=== PATIENT | male | born 1965 | race Caucasian/White ===

== ENCOUNTER 2024-07-18 08:38 | Outpatient (CLI) | payer OTHER | END 2024-07-18 08:39 | disposition home or self-care (01) | LOC: CSHULT 08:38 | PROVIDERS: ATTEND Family Medicine | DX: R74.8 Abnormal levels of other serum enzymes (principal); K76.9 Liver disease, unspecified | CPT/HCPCS: 76705 ==

== ENCOUNTER 2024-07-30 09:04 | Outpatient (CLI) | payer OTHER ==
[2024-07-30] MEDS ORDERED: Magnevist 469MG/ML 20 ML VIAL ONE (11:35)
== END 2024-07-30 09:05 | disposition home or self-care (01) ==
LOC: CSHMRI 09:04
PROVIDERS: ATTEND Family Medicine
DX: R97.20 Elevated prostate specific antigen [PSA] (principal); N40.2 Nodular prostate without lower urinary tract symptoms
CPT/HCPCS: 36415; 72197; 82565

== ENCOUNTER 2025-03-24 10:51 | Outpatient (CLI) | payer BC | END 2025-03-24 10:52 | disposition home or self-care (01) | LOC: CSHEKG 10:51 | PROVIDERS: ATTEND Family Medicine | DX: Z01.818 Encounter for other preprocedural examination (principal) | CPT/HCPCS: 93005; 93010 ==